=== PATIENT | male | born 1960 | race Caucasian/White ===

== ENCOUNTER 2019-06-24 10:11 | Outpatient (CLI) | payer OTHER, SELFPAY ==
--- NOTE | ~2019-06-24 | US_ITS ---
US right upper quadrant DATE: 06/24/2019 10:34 INDICATION: Right upper quadrant abdominal pain TECHNIQUE: Real-time imaging of liver, pancreas, gallbladder areas COMPARISON: None FINDINGS: Hepatic steatosis. Normal hepatic portal venous flow direction. No gallstones or gallbladder wall thickening are identified. The common bile duct measures 5 mm, norm al. Negative sonographic Fagan's sign. No pancreatic mass lesion is evident. IMPRESSION: Hepatic steatosis Reviewed, dictated and finalized at [facility]. Reviewed, dictated and finalized at [facility]. IMPRESSION: Hepatic steatosis
== END 2019-06-24 10:12 | disposition home or self-care (01) ==
LOC: ANHIMG 10:16
PROVIDERS: PCP Family Medicine; Visit Provider Nurse Practitioner
DX: R10.11 Right upper quadrant pain (principal); K76.0 Fatty (change of) liver, not elsewhere classified
CPT/HCPCS: 76705